=== PATIENT | male | born 1990 | race Caucasian/White ===

== ENCOUNTER 2024-04-08 10:53 | Emergency (ER) | payer BC ==
[2024-04-08] MEDS: Lidocaine 2% Viscous Solution 15 ML UD PO ONE (12:55)
[2024-04-08] MEDS: Benzocaine 20% Topical Spray UD MUCMEM ONE (12:55)
[2024-04-08] MEDS ORDERED: Lidocaine 1% with EPINEPHrine 1:100,000 10 ML MDV INJECT ONE (13:30)
[2024-04-08] MEDS: Bupivacaine 0.25%/EPINEPHrine 1:200,000 30 ML SDV INJECT ONE (13:53)
== END 2024-04-08 14:24 | disposition home or self-care (01) ==
LOC: MW.ED 10:53
DX: K08.89 Other specified disorders of teeth and supporting structures (principal); F17.210 Nicotine dependence, cigarettes, uncomplicated; Z88.0 Allergy status to penicillin; Z79.899 Other long term (current) drug therapy; Z75.8 Other problems related to medical facilities and other health care
CPT/HCPCS: 64400; 99282; A9270; J3490